=== PATIENT | female | born 1980 | race Caucasian/White ===

== ENCOUNTER → 2017-05-11 | Outpatient (CLI) | payer OTHER ==
--- NOTE | 2017-05-11 12:24 | RAD ---
Indication wheezing and cough. Frontal and lateral views of the chest were obtained and are compared to a single view examination 08/22/2008. There is volume loss in the right midlung, along the area of the minor fissure, probably reflecting atelectasis. Underlying pneumonia is felt less likely but cannot be entirely excluded. The left lung is clear. The heart and pulmonary vessels are within normal limits. There is no significant pleural fluid. There is no pneumothorax. IMPRESSION: Volume loss likely reflecting atelectasis in the right midlung. Underlying pneumonia is not entirely excluded but felt less likely
== END | disposition home or self-care (01) ==
LOC: DXRAD 10:35
PROVIDERS: ATTEND Nurse Practitioner
DX: R50.9 Fever, unspecified (principal); R05 Cough; R06.2 Wheezing
CPT/HCPCS: 71020

== ENCOUNTER 2017-05-29 18:23 | Emergency (ER) | payer SELFPAY ==
[~2017-05-29] VITALS: Ht 165.1 cm; Wt 96.2 kg
[2017-05-29] MEDS ORDERED: IV NORMAL SALINE 1,000ML 1,000 ML IV SCH (18:31)
[2017-05-29] MEDS ORDERED: diphenhydrAMINE 50 MG/ML VIAL IV ONE (18:45)
[2017-05-29] MEDS ORDERED: methylPREDNISolone SOD SUCC PF 125 MG/2 ML VIAL. IV ONE (18:45)
[2017-05-29] MEDS ORDERED: FAMOTIDINE 20 MG/2 ML VIAL IVP ONE (18:45)
[2017-05-29] MEDS ORDERED: diphenhydrAMINE 50 MG/ML VIAL IVP ONE (19:00)
[2017-05-29] MEDS ORDERED: BENZTROPINE 2 MG/2 ML AMPUL. IV ONE (19:15)
[2017-05-29] MEDS ORDERED: BENZ1TAB5 PO (19:52)
--- NOTE | 2017-05-29 19:52 | PHYS DOC ---
Past History Past Medical History: Anxiety, Asthma, Bipolar, COPD, Depression, Other Past Surgical History: No Surgical History Alcohol Use: None Drug Use: None Social History Narrative: hx of drug use Adult General Chief Complaint Chief Complaint: ALLERGIC REACTION HPI HPI Patient is a 37 year old female who presents with tongue problem. The patient reports onset of symptoms just prior to arrival with abnormal tongue sensation & body shaking. EMS was concerned that her tongue appeared swollen so they gave IM epi en route. She denies face/tongue/lip swelling, shortness of breath , nausea, vomiting, diarrhea, rash. No previous history of similar symptoms. She recently started taking haldol for psychotic disorder. She also took valium today for anxiety. Review of Systems Review of Systems Constitutional: Denies fever or chills HENT: Denies nasal congestion or sore throat, reports abnormal tongue sensation. Respiratory: Denies cough or shortness of breath Cardiovascular: Denies chest pain or edema GI: Denies abdominal pain, nausea, vomiting, or diarrhea Musculoskeletal: Denies back pain or joint pain Integument: Denies rash or skin lesions Neurologic: Denies headache, focal weakness or sensory changes Psychiatric: Reports anxiety. Current Medications Current Medications Current Medications Medications (Trade) Dose Ordered Sig/Pratima Start Time Stop Time Status Last Admin Dose Admin Benztropine Mesylate (Cogentin) 1 mg 1X ONCE 05/29/17 19:15 05/29/17 19:16 DC Diphenhydramine HCl (Benadryl) 25 mg 1X ONCE 05/29/17 19:00 05/29/17 19:03 DC 05/29/17 19:00 25 MG Famotidine (Pepcid) 20 mg 1X ONCE 05/29/17 18:45 05/29/17 18:46 DC 05/29/17 18:45 20 MG Methylprednisolone Sodium Succinate (SOLU-Medrol 125MG VIAL) 125 mg 1X ONCE 05/29/17 18:45 05/29/17 18:46 DC 05/29/17 18:47 125 MG Sodium Chloride 1,000 ml @ 1,000 mls/hr Q1H 05/29/17 18:31 05/29/17 19:30 DC 05/29/17 18:40 1,000 MLS/HR Allergies Allergies Allergies Coded Allergies Type Severity Reaction Last Updated Verified No Known Drug Allergies 05/29/17 No Physical Exam Physical Exam Constitutional: Well developed, well nourished, anxious, tremulous. HENT: Normocephalic, atraumatic, bilateral external ears normal, oropharynx moist, nose normal. abnormal speech but tongue does not appear swollen, airway patent, no lip or facial swelling. Eyes: conjunctiva normal, no discharge. Neck: supple, no stridor. Cardiovascular: RRR, no murmurs, no edema. Lungs & Thorax: LCTAB, no wheezing, no respiratory distress. Abdomen: soft, nontender, nondistended. Skin: Warm, dry, no erythema, no rash. no urticaria Back: No tenderness. Extremities: No tenderness, no edema. Neurologic: Alert and oriented X 3, CN2-12 grossly intact, symmetric strength/ sensation to upper & lower extremities, no focal deficits noted. Psychologic: anxious Current Patient Data Vital Signs Vital Signs Date Time Temp Pulse Resp B/P (MAP) Pulse Ox O2 Delivery O2 Flow Rate FiO2 05/29/17 18:23 97.6 82 22 97 Room Air EKG EKG [] Radiology/Procedures Radiology/Procedures [] Course & Med Decision Making Course & Med Decision Making Pertinent Labs and Imaging studies reviewed. (See chart for details) The patient presents with tongue complaints that appear more consistent with dystonic reaction than allergic reaction. She already received IM epi so will go ahead & give solumedrol, benadryl, & pepcid, & add cogentin. She was observed, felt dramatically better & requested discharge home. Her speech was normal, no persistent tongue symptoms, tremulousness resolved. Recommend hold haldol for now, continue cogentin, if any allergic symptoms add benadryl but will not give rx for pepcid, prednisone, or epi pen at this time. Follow up with psych on Wednesday in 2 days for med evaluation & determination of best course given reaction to haldol. Come back for face/tongue/lip swelling, severe shortness of breath, suicidal thoughts, any otherwise worsening condition. Discharged home in stable condition. [] Dragon Disclaimer Dragon Disclaimer This chart was dictated in whole or in part using Voice Recognition software in a busy, high-work load, and often noisy Emergency Department environment. It may contain unintended and wholly unrecognized errors or omissions. Departure Departure: Impression: Primary Impression: Dystonic drug reaction Disposition: 01 HOME, SELF-CARE Condition: IMPROVED Referrals: PCP,ELAN (PCP) Patient Instructions: Dystonic Reaction Additional Instructions: You were seen in the emergency department today for drug reaction, dystonia. Please stop taking haldoperidol for now & take cogentin to treat residual effects. Initially you were treated for allergic reaction but this appears less likely. If you do have rash or itching, take benadryl. Follow up with your psychiatrist on Wednesday morning. Come back for face/tongue/lip swelling, severe shortness of breath, any otherwise worsening condition. Scripts Benztropine Mesylate (BENZTROPINE MESYLATE) 1 Mg Tablet 1 TAB PO BID for 3 Days, #6 TAB Prov: MAURI MANN MD 05/29/17 MAURI MANN MD May 29, 2017 19:52
[2017-05-29 20:00] VITALS: BP 128/83
== END 2017-05-29 20:00 | disposition home or self-care (01) ==
LOC: ER 18:23
DX: G24.09 Other drug induced dystonia (principal); J44.9 Chronic obstructive pulmonary disease, unspecified; F29 Unspecified psychosis not due to a substance or known physiological condition; F41.9 Anxiety disorder, unspecified; F31.9 Bipolar disorder, unspecified
CPT/HCPCS: 96361; 96374; 96375; 99284; J0515; J1200; J2930; S0028; J7030

== ENCOUNTER → 2018-03-25 | Outpatient (CLI) | payer OTHER ==
[~2018-03-25] MED LIST: BENZ1TAB5 PO
--- NOTE | 2018-03-25 11:42 | RAD ---
EXAM: Lumbar spine, 3 views. HISTORY: Pain. COMPARISON: None. FINDINGS: Frontal, lateral and coned sacral views of the lumbar spine are obtained. There are hypoplastic T12 ribs and 5 nonrib-bearing lumbar vertebral segments. 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 There is disc space narrowing and facet arthropathy at the lumbosacral junction. There is no listhesis. IMPRESSION: 1. Degenerative change at the lumbosacral junction. 2. No acute osseous finding. Electronically signed by: Hortencia Francois MD (03/25/2018 11:38 AM) [facility]
== END | disposition home or self-care (01) ==
LOC: DXRAD 09:57
PROVIDERS: ATTEND Family Medicine
DX: M47.897 Other spondylosis, lumbosacral region (principal); M48.07 Spinal stenosis, lumbosacral region; M12.88 Other specific arthropathies, not elsewhere classified, other specified site; F41.9 Anxiety disorder, unspecified; F31.9 Bipolar disorder, unspecified; J44.9 Chronic obstructive pulmonary disease, unspecified
CPT/HCPCS: 72100

== ENCOUNTER → 2018-04-26 | Outpatient (CLI) | payer OTHER ==
--- NOTE | 2018-04-26 16:26 | RAD ---
Cervical spine, 3 views, 04/26/2018: HISTORY: Pain There is straightening of the normal cervical lordosis. No fracture or dislocation is identified. The intervertebral disc spaces are fairly well preserved. There are mild sclerotic changes involving scattered facet joints. No prevertebral soft tissue swelling is seen. IMPRESSION: 1. Minimal facet joint arthropathy. 2. Straightening of the normal cervical lordosis which can be seen with muscle spasm. 3. No acute bony abnormality is detected. Electronically signed by: Jorge L Marcelo MD (04/26/2018 4:23 PM) [facility]
== END | disposition home or self-care (01) ==
LOC: DXRAD 11:17
PROVIDERS: ATTEND Family Medicine
DX: M46.82 Other specified inflammatory spondylopathies, cervical region (principal); J44.9 Chronic obstructive pulmonary disease, unspecified
CPT/HCPCS: 72040

== ENCOUNTER → 2018-09-20 | Outpatient (CLI) | payer OTHER ==
--- NOTE | 2018-09-20 18:02 | RAD ---
Indication: Right elbow pain TECHNIQUE: 3 views of the right elbow COMPARISON: None Findings/ impression: No acute fracture or dislocation. No joint effusion. No arthritic changes. Electronically signed by: Seamus Sullivan DO (09/20/2018 5:57 PM) [facility]
== END | disposition home or self-care (01) ==
LOC: RAD 16:42
PROVIDERS: ATTEND Family Medicine
DX: M25.521 Pain in right elbow (principal)
CPT/HCPCS: 73080

== ENCOUNTER → 2019-04-11 | Outpatient (CLI) | payer OTHER ==
--- NOTE | 2019-04-11 12:14 | RAD ---
EXAM: Abdomen, 2 views. HISTORY: Pain. COMPARISON: None. FINDINGS: Frontal upright and supine views of the abdomen are obtained. There is a small of gas within nondistended loops of bowel. There is no transition point to suggest obstruction. There is no free air. There is mild thoracolumbar scoliosis. IMPRESSION: Nonobstructive bowel gas pattern. Electronically signed by: Hortencia Francois MD (04/11/2019 12:11 PM) [facility]
== END | disposition home or self-care (01) ==
LOC: PMG 09:48
PROVIDERS: ATTEND Physician Assistant
DX: R10.31 Right lower quadrant pain (principal); M41.85 Other forms of scoliosis, thoracolumbar region; Z90.49 Acquired absence of other specified parts of digestive tract
CPT/HCPCS: 74019

== ENCOUNTER → 2019-05-05 | Outpatient (CLI) | payer OTHER ==
--- NOTE | 2019-05-05 17:16 | RAD ---
2 view right elbow study Clinical indications: Right elbow pain for one week. No known injury. FINDINGS: No joint effusion is seen. No acute fracture or dislocation or lytic process is evident. No significant arthritic change is seen. There is a small exostosis of the lateral epicondyle attachment of the common extensor tendon mechanism. IMPRESSION: No acute osseous abnormality. Electronically signed by: Db Nova MD (05/05/2019 5:13 PM) [email or web address]
== END | disposition home or self-care (01) ==
LOC: PMG 11:39
PROVIDERS: ATTEND Family Medicine
DX: M25.821 Other specified joint disorders, right elbow (principal)
CPT/HCPCS: 73070

== ENCOUNTER → 2020-08-09 | Outpatient (CLI) | payer OTHER ==
--- NOTE | 2020-08-09 11:09 | RAD ---
XR HAND_LEFT 2 VIEWS 08/09/2020 12:00 AM INDICATION: Pain COMPARISON: None available. TECHNIQUE: 2 views the left hand are provided. FINDINGS/ IMPRESSION: There is no acute fracture or dislocation. Joint spaces are maintained. Bone mineralization is within normal limits. Mild soft tissue swelling primarily along the palmar aspect of the proximal second di git. There is no soft tissue gas or osseous erosion. No radiopaque foreign body. Electronically signed by: Ni Busby MD (08/09/2020 11:06 AM) [id number]
== END ==
LOC: PMG 10:09
PROVIDERS: ATTEND Family Medicine
DX: M79.642 Pain in left hand (principal); M79.89 Other specified soft tissue disorders
CPT/HCPCS: 73120

== ENCOUNTER 2021-10-06 19:46 | Emergency (ER) | payer OTHER ==
[~2021-10-06] VITALS: Ht 165.1 cm; Wt 56.0 kg
--- NOTE | 2021-10-06 19:52 | PHYS DOC ---
Past History Past Medical History: Anxiety, Asthma, Bipolar, COPD, Depression, Other Past Surgical History: No Surgical History Alcohol Use: None Drug Use: None General Adult EDM: Chief Complaint: SEIZURE HPI: HPI: ".. I had one my seizures... and my Lt arm is infected... I hurt it on window... I broke last week...It is draining pus..." Patient is a 41 year old female who presents with above hx and complaints tonic- clonic seizure and left arm infection. Patient's been having seizures every day for the past 2 years. Patient has not ever been started on antiseizure meds. Patient in the past had follow-up with Dr. Strange but has not seen him in over a year. Patient had been using meth every day but has not used meth in the past 4 days. Patient also complaining of left arm infection from cut she got breaking a window of her left arm. Patient has a 2 and half centimeter cut that is infected and draining pus. There is swelling of the arm. Distal neurovascular intact. There is swelling in the fingers. Rings were removed immediately. Patient is unsure of her last tetanus. No recent travel. No specific history of ill contacts. Patient denies any history of HIV or immunosuppression. Patient has had previous hysterectomy. Review of Systems: Review of Systems: Constitutional: Denies fever or chills Eyes: Denies change in visual acuity HENT: Denies nasal congestion or sore throat Respiratory: Denies cough or shortness of breath Cardiovascular: Denies chest pain or edema GI: Denies abdominal pain, nausea, vomiting, bloody stools or diarrhea : Denies dysuria Musculoskeletal: Left arm pain at site of infection Integument: Denies rash Neurologic: Denies headache, focal weakness or sensory changes. Complains of tonic-clonic seizure Endocrine: Denies polyuria or polydipsia Lymphatic: Denies swollen glands Psychiatric: Denies depression or anxiety Family History: Family History: Noncontributory to presentation Current Medications: Current Meds: See nursing for home meds Allergies: Allergies: Allergies Coded Allergies Type Severity Reaction Last Updated Verified No Known Drug Allergies 05/29/17 No Physical Exam: PE: Constitutional: no acute distress, non-toxic appearance. [] HENT: Normocephalic, atraumatic, bilateral external ears normal, oropharynx moist, no oral exudates, nose normal. Poor dentition. Multiple lip nose ear studs Eyes: PERRLA, EOMI, conjunctiva normal, no discharge. [] Neck: Normal range of motion, no tenderness, supple, no stridor. [] Cardiovascular: Tach cardia heart rate regular rhythm, no murmur [] Lungs & Thorax: Bilateral breath sounds equal apex with scattered wheezes on auscultation [] Abdomen: Bowel sounds normal, soft, no tenderness, no masses, no pulsatile masses. Old surgery scar Skin: Warm, dry, left arm erythema, and cellulitis and 3 cm laceration Back: No tenderness, no CVA tenderness. [] Extremities: No tenderness, no cyanosis, no clubbing, ROM intact, no edema. [] Neurologic: Alert and oriented X 3, normal motor function, normal sensory function, no focal deficits noted. DTRs +2. Ambulates without problems. Mobile Development Manager equal. Mild twitching Psychologic: Affect anxious, judgement normal, mood normal. [] EKG: EKG: My interpretation of EKG shows a sinus rhythm at 84 bpm. No acute morphology. Time of EKG is 2044 hrs. [] Radiology/Procedures: Radiology/Procedures: [][place] [address] IMAGING REPORT Signed PATIENT: CURT GERMAN ACCOUNT: [id number] : 1980 LOCATION: ER AGE: 41 SEX: F EXAM STATUS: PRE ER ORD. PHYSICIAN: SHARON GONZALEZ MD REASON: sz, tachy, wheeze PROCEDURE: PORTABLE CHEST 1V INDICATION: Reason: sz, tachy, wheeze / Spl. Instructions: / History: COMPARISON: April 2017 FINDINGS: Single view of chest obtained. Cardiac silhouette is unremarkable. No focal airspace consolidation. No gross osseous destructive lesion. IMPRESSION: * No focal airspace consolidation or edema. Electronically signed by: Jong Espinoza MD (10/06/2021 9:50 PM) [id number] DICTATED AND SIGNED BY: JONG ESPINOZA MD DATE: 10/06/212147 CC: SHARON GONZALEZ MD; HIRAM STRANGE MD ~MTH0 0 Heart Score: C/O Chest Pain: N/A Risk Factors: Risk Factors: DM, Current or recent (<one month) smoker, HTN, HLP, family history of CAD, obesity. Risk Scores: Score 0 - 3: 2.5% MACE over next 6 weeks - Discharge Home Score 4 - 6: 20.3% MACE over next 6 weeks - Admit for Clinical Observation Score 7 - 10: 72.7% MACE over next 6 weeks - Early Invasive Strategies Course & Med Decision Making: Course & Med Decision Making Pertinent Labs and Imaging studies reviewed. (See chart for details) Patient avoid illicit drugs. Patient avoid smoking. Patient follow-up primary care. Patient take Bactrim twice a day. Monitor with him closely for expanding infection. If no improvement may need IV antibiotics. Return if any concerns. Push vitamin C drinks and fruit juices. Consider following up with [facility] [phone] for withdrawal and drug rehab. program. Impression: 1. Hx. of Seizures - Tonic Clonic x 2 yrs- Daily ( Suspect pseudo seizure- with normal CK) 2. Hx. Polysubstance abuse 3. Cellulitis 4. UDS=+ Meth 5. UTI [] Dragon Disclaimer: Dragon Disclaimer: This electronic medical record was generated, in whole or in part, using a voice recognition dictation system. Departure Departure: Referrals: HIRAM STRANGE MD (PCP) Scripts Sulfamethoxazole/Trimethoprim (BACTRIM DS TABLET) 1 Each Tablet 1 TAB PO BID for cellulitis for 10 Days, #20 TAB 0 Refills Prov: SHARON GONZALEZ MD 10/06/21 Dragon Disclaimer This chart was dictated in whole or in part using Voice Recognition software in a busy, high-work load, and often noisy Emergency Department environment. It may contain unintended and wholly unrecognized errors or omissions. Dragon Disclaimer This chart was dictated in whole or in part using Voice Recognition software in a busy, high-work load, and often noisy Emergency Department environment. It may contain unintended and wholly unrecognized errors or omissions. SHARON GONZALEZ MD Oct 06, 2021 19:52
[2021-10-06] MEDS ORDERED: IV RINGERS SOLUTION,LACTATED 1,000 ML IV SCH (20:30)
[2021-10-06] MEDS ORDERED: SMZ/TMP 800/160MG TABLET. PO ONE (20:30)
[2021-10-06] MEDS ORDERED: DIPHTH,PERTUSS(ACELL),TET TOX 0.5 ML DISP.SYRIN. VAX IM ONE (20:45)
[2021-10-06] MEDS ORDERED: cefTRIAXone SODIUM 1 GM VIAL ONE (20:50)
[2021-10-06] MEDS ORDERED: IV NORMAL SALINE 50ML 50 ML ONE (20:50)
[2021-10-06 21:15] LABS: ANION GAP 5 (6-14); BLOOD UREA NITROGEN 18 mg/dL (7-20); CALCIUM 8.6 mg/dL (8.5-10.1); CARBON DIOXIDE 31 mmol/L (21-32); CHLORIDE 106 mmol/L (98-107); CREATININE 0.7 mg/dL (0.6-1.0); GFR 92.2; GLUCOSE 105 mg/dL (70-99); POTASSIUM 4.1 mmol/L (3.5-5.1); SODIUM 142 mmol/L (136-145)
[2021-10-06 21:27] LABS: ALBUMIN 3.2 g/dL (3.4-5.0); ALK PHOS 98 U/L (46-116); ALT (SGPT) 23 U/L (14-59); AST (SGOT) 20 U/L (15-37); MAGNESIUM 2.1 mg/dL (1.8-2.4); TOTAL BILIRUBIN 0.2 mg/dL (0.2-1.0); TOTAL PROTEIN 6.1 g/dL (6.4-8.2)
[2021-10-06 21:28] LABS: DIRECT BILIRUBIN < 0.1 mg/dL (0.0-0.2)
[2021-10-06 21:29] LABS: BASO # 0.2 x10^3/uL (0.0-0.2); BASO % 2 % (0-3); EOS # 0.1 x10^3/uL (0.0-0.7); EOS % 1 % (0-3); HEMATOCRIT 40.1 % (36.0-47.0); LYMPH # 3.8 x10^3/uL (1.0-4.8); LYMPH % 29 % (24-48); MEAN CORPUSCULAR HEMOGLOBIN 30 pg (25-35); MEAN CORPUSCULAR HGB CONC 32 g/dL (31-37); MEAN CORPUSCULAR VOLUME 93 fL (79-100); MONO # 0.9 x10^3/uL (0.0-1.1); MONO % 7 % (0-9); NEUT # 8.2 x10^3uL (1.8-7.7); NEUT % 62 % (31-73); PLATELET COUNT 446 x10^3/uL (140-400); RED BLOOD COUNT 4.34 x10^6/uL (3.50-5.40); RED CELL DISTRIBUTION WIDTH 13.8 % (11.5-14.5); WHITE BLOOD COUNT 13.2 x10^3/uL (4.0-11.0)
--- NOTE | 2021-10-06 21:52 | RAD ---
INDICATION: Reason: sz, tachy, wheeze / Spl. Instructions: / History: COMPARISON: April 2017 FINDINGS: Single view of chest obtained. Cardiac silhouette is unremarkable. No focal airspace consolidation. No gross osseous destructive lesion. IMPRESSION: * No focal airspace consolidation or edema. Electronically signed by: Hitesh Rodriguez MD (10/06/2021 9:50 PM) [id number]
[2021-10-06 22:57] LABS: BARBITURATES NEG (NEG); BENZODIAZEPINES NEG (NEG); CANNABINOIDS NEG (NEG); COCAINE NEG (NEG); METHADONE NEG (NEG); OPIATES NEG (NEG); PHENCYCLIDINE NEG (NEG)
[2021-10-06 22:58] LABS: AMPHETAMINE/METHAMPHETAMINE POS (NEG)
[2021-10-06 23:19] LABS: BACTERIA,URINE FEW /HPF (0-FEW); CLARITY,URINE CLEAR; COLOR,URINE YELLOW; GLUCOSE,URINE NEG (NEG); NITRITE,URINE POS (NEG); RBC,URINE OCC /HPF (0-2); SQUAMOUS EPITHELIAL CELL,UR OCC /LPF; UROBILINOGEN,URINE 0.2 mg/dL (0.2 mg/dL)
[2021-10-06 23:23] LABS: INFLUENZA A PATIENT NEGATIVE (NEGATIVE); INFLUENZA B PATIENT NEGATIVE (NEGATIVE)
[2021-10-06] MEDS ORDERED: SULF1TAB24 PO (23:27)
[2021-10-06 23:35] VITALS: BP 149/74
--- NOTE | 2021-10-06 23:35 | RAD ---
EXAM: XR LT WRIST 3VIEWS 10/06/2021 11:06 PM CLINICAL INDICATION: Class cut to left wrist COMPARISON: Left hand radiograph 08/09/2020 TECHNIQUE: 3 views of the left wrist FINDINGS: No acute fracture. Alignment is normal. Joint spaces are maintained. Mild soft tissue swel ling about the wrist, greatest laterally. There is a vague 6 mm linear density within the area of sof t tissue swelling at the ulnar aspect of the wrist. IMPRESSION: Soft tissue swelling at the ulnar aspect of the wrist with a 6 mm faint linear hyperdens ity, possibly a foreign body. Electronically signed by: Radha Stanley MD (10/06/2021 11:32 PM) [id number]
--- NOTE | 2021-10-07 01:08 | EKG ---
[address] [address] Test Date: 2021-10-06 Test Time: 20:45:44 Pat Name: CURT GERMAN Department: Room: Gender: F Almond Paste Mixer: : 1980 Requested By: SHARON GONZALEZ Order Number: [id number] Reading MD: Jacek Jackson Measurements Intervals [place] Rate: 84 P: 69 SC: 134 QRS: 68 QRSD: 94 T: 69 QT: 370 QTc: 440 Interpretive Statements SINUS RHYTHM NORMAL ECG RI6.02 No previous ECG available for comparison Electronically Signed On 10-07-2021 19:27:38 HAND COLLATOR by Jacek Jackson
--- NOTE | 2021-10-07 02:54 | EKG ---
[address] [address] Test Date: 2021-10-06 Test Time: 23:17:45 Pat Name: CURT GERMAN Department: Room: Gender: F Web Sizer: CHACE : 1980 Requested By: SHARON GONZALEZ Order Number: [id number] Reading MD: Jacek Jackson Measurements Intervals [place] Rate: 76 P: 69 MA: 140 QRS: 64 QRSD: 96 T: 52 QT: 374 QTc: 425 Interpretive Statements SINUS RHYTHM NORMAL ECG Electronically Signed On 10-07-2021 19:26:57 STATISTICAL SECRETARY by Jacek Jackson
== END 2021-10-06 23:50 | disposition home or self-care (01) ==
LOC: ER 19:46
DX: L03.114 Cellulitis of left upper limb (principal); N39.0 Urinary tract infection, site not specified; F19.10 Other psychoactive substance abuse, uncomplicated; F15.10 Other stimulant abuse, uncomplicated; F41.9 Anxiety disorder, unspecified; F31.9 Bipolar disorder, unspecified; J44.9 Chronic obstructive pulmonary disease, unspecified; Z20.822 Contact with and (suspected) exposure to COVID-19
CPT/HCPCS: 36415; 71045; 73110; 80048; 80076; 80307; 81001; 82550; 83735; 83880; 84443; 84484; 85025; 87086; 87428; 90471; 90715; 93005; 96365; 96372; 99285; J0696; J2060; J7120

== ENCOUNTER 2021-10-16 22:58 | Emergency (ER) | payer OTHER ==
[~2021-10-16] VITALS: Ht 165.1 cm; Wt 54.5 kg
[~2021-10-16 22:58] MED LIST changes: +SULF1TAB24 PO
--- NOTE | 2021-10-16 23:18 | PHYS DOC ---
Past History Past Medical History: Anxiety, Asthma, Bipolar, COPD, Depression, Other Past Surgical History: Other Additional Past Surgical Histo: HISTORECTOMY (OVERIES STILL WITH PT) Alcohol Use: None Drug Use: None Adult General HPI HPI The patient is a 41-year-old female with a history of daily methamphetamine abuse who presents for evaluation of methamphetamine intoxication. EMS were called because the patient was noted to be acting bizarrely in the hallway in her apartment complex. She admits to injecting methamphetamines about 4 hours prior to arrival. She is agitated and thinks "I used too much." She denies any ingestions aside from methamphetamines. She denies any alcohol use. She denies SI/HI. She is alert, oriented, pleasantly and appropriately interactive and in no acute distress. She denies pain anywhere. No signs of any trauma. Blood glucose appropriate en route per EMS, as were vital signs. Review of Systems Review of Systems A 12 point review of systems was completed and was negative except where noted in HPI above. Current Medications Current Medications Current Medications Medications (Trade) Dose Ordered Sig/Pratima Start Time Stop Time Status Last Admin Dose Admin Lorazepam (Ativan Inj) 2 mg 1X ONCE 10/16/21 23:30 10/16/21 23:31 Allergies Allergies Allergies Coded Allergies Type Severity Reaction Last Updated Verified haloperidol Allergy Intermediate Unknown 10/06/21 Yes Physical Exam Physical Exam 41-year-old female appearing nontoxic and in no acute distress. She is mildly agitated and appears intoxicated. Head is normocephalic and atraumatic. Neck is supple and nontender. Oropharynx is moist. Lungs are clear to auscultation at all stations. There is a normal S1 and S2 without rubs or gallops and capillary refill is appropriate, less than 2 seconds globally. Abdomen is soft, nontender nondistended. Skin is warm and dry without cyanosis, clubbing or edema. Psychiatrically, the patient demonstrates appropriate mood and affect and is alert. Evaluation of the extremities reveals BUEs and BLEs neurovascularly intact distally with strength of 5, sensation intact light touch in all nerve distributions, radial, DP and PT pulses 2+ bilaterally, capillary refill less than 2 seconds, hands and feet warm and well-perfused. No dependent peripheral edema distally. No calf tenderness swelling bilaterally. Daly's test is negative bilaterally. EKG EKG [] Radiology/Procedures Radiology/Procedures [] Heart Score C/O Chest Pain: No Risk Factors: Risk Factors: DM, Current or recent (<one month) smoker, HTN, HLP, family history of CAD, obesity. Risk Scores: Risk Factors: DM, Current or recent (<one month) smoker, HTN, HLP, family history of CAD, obesity. Course & Med Decision Making Course & Med Decision Making Well-appearing 41-year-old female who was evidently well-known to staff here for methamphetamine abuse. Presenting for evaluation of methamphetamine intoxication. Vital signs and clinical examination are reassuring. No signs of any trauma. Given IM Ativan on arrival. Will allow her to rest and sober and will then reevaluate to determine best next steps. 0100: Patient is alert and oriented, pleasantly and appropriately interactive, in no acute distress, denying any complaints on serial reassessment. She denies pain anywhere. After Ativan she is calm and no longer agitated. She is clinically sober for discharge. A friend is here to pick her up. Patient is counseled to stop using methamphetamines to reduce serious risks to her health. She understands that if he feels worse instead of better or develops other new symptoms of concern that she should return to the emergency department immediately for reevaluation. All questions are answered. Dragon Disclaimer Dragon Disclaimer This electronic medical record was generated, in whole or in part, using a voice recognition dictation system. Departure Departure: Impression: Primary Impression: Methamphetamine intoxication Disposition: HOME / SELF CARE / HOMELESS Condition: IMPROVED Referrals: HIRAM MARTINEZ MD (PCP) Patient Instructions: Methamphetamine Abuse, Complications Additional Instructions: Follow-up with your primary doctor in the next 2 to 4 days for a reevaluation of your symptoms and a discussion of next best steps in care. Drink plenty of fluids and get plenty of rest. Stop using methamphetamines to reduce very serious risks to your health. Return to the emergency department right away for worsening symptoms of any kind or with any other new symptoms of concern. CARLIN DOSS MD Oct 16, 2021 23:17
[2021-10-16] MEDS ORDERED: ACETAMINOPHEN 500 MG TABLET PO ONE (23:45)
[2021-10-17 01:05] VITALS: BP 146/90
== END 2021-10-17 01:10 | disposition home or self-care (01) ==
LOC: ER 22:58
DX: F15.129 Other stimulant abuse with intoxication, unspecified (principal); F41.9 Anxiety disorder, unspecified; J44.9 Chronic obstructive pulmonary disease, unspecified; F31.9 Bipolar disorder, unspecified; Z88.8 Allergy status to other drugs, medicaments and biological substances
CPT/HCPCS: 96372; 99283; J2060